=== PATIENT | female | born 1955 | race Caucasian/White ===

== ENCOUNTER 2021-06-20 12:28 | Emergency (ER) | payer OTHER, SELFPAY ==
[2021-06-20 12:28] VITALS: BP 117/100; PULSE 122; RESP 16; TEMP 36.6; O2SAT 100; BMI 36.8
--- NOTE | 2021-06-20 12:32 | EKG12_ITS ---
Test Reason : CHEST PRESSURE Blood Pressure : / mmHG Vent. Rate : 111 BPM Atrial Rate : 111 BPM P-R Int : 142 ms QRS Dur : 076 ms QT Int : 324 ms P-R-T Axes : 030 006 021 degrees QTc Int : 440 ms Sinus tachycardia Nonspecific ST abnormality Abnormal ECG Confirmed by MATT LUCIA, DONNA ([id number]), online editor SERGEY YARBROUGH ([id number]) on 06/21/2021 10:23:30 AM Referred By: ARMANDO Confirmed By:DONNA GUTIERREZ MD
--- NOTE | 2021-06-20 13:15 | RAD_ITS ---
STUDY: X-RAY CHEST REASON FOR EXAM: Female, 66 years old. Chest pain. TECHNIQUE: Single AP portable view of the chest. COMPARISON: Comparison is made with prior study dated 06/11/2012. FINDINGS: The lungs are clear and expanded. There is no demonstrated pleural abnormality. Normal size heart. Normal mediastinum and suraj. Normal visualized pulmonary arteries. Normal visualized aortic arch and descending thoracic aorta. There are diffuse degenerative changes of the visualized thoracic spine. Normal visualized ribs, clavicles, and shoulders. There is no demonstrated abnormality of the visualized soft tissue structures of the upper abdomen. RAD/Chest 1 View IMPRESSION: Normal x-ray examination of the chest. Electronically Signed: Juanito Peres MD at 13:40 EST ,
[2021-06-20 13:56] VITALS: BP 128/111; PULSE 106; RESP 18; O2SAT 95
[2021-06-20 14:07] LABS: Absolute Lymphocyte Count 1.38 X10^3/uL (0.83-4.51); Absolute Neutrophil Count 4.4 X10^3/uL (2.0-7.7); Basophil# 0.04 X10^3/uL; Basophil% 0.6 % (0-1); Eosinophil# 0.07 X10^3/uL; Eosinophils% 1.1 % (0-5); Hematocrit 43.9 % (37-47); Hemoglobin 14.7 g/dL (12.0-15.0); Lymphocyte # 1.38 X10^3/ul (0.83-4.51); Lymphocyte % 21.1 % (19-41); Mean Corp Hgb Conc 33.5 g/dL (32-36); Mean Corpuscular Hgb 29.4 pg (27.0-32.0); Mean Corpuscular Volume 87.8 fL (81-99); Mean Platelet Vol. 9.3 fl (6.2-12.0); Monocyte# 0.69 X10^3/uL; Monocyte% 10.5 % (0-10); NRBC Flagged by Analyzer 0 % (0-5); Neutrophil # 4.35 X10^3/uL (2.7-7.7); Neutrophil % 66.4 % (47-70); Platelet Count 404 K/mm3 (150-450); RBC Distribution Width CV 13.6 % (11.6-14.6); RBC Distribution Width SD 43.7 fl (35.1-43.9); White Blood Count 6.6 K/mm3 (4.4-11.0)
[2021-06-20 14:14] LABS: D-Dimer Quantitative (DVT/PE) 0.33 FEU/ug/m (0.27-0.49)
[2021-06-20 14:51] LABS: Anion Gap 7 (5-15); BUN 17 mg/dL (7-18); Calcium,Total 9.3 mg/dL (8.5-10.1); Chloride 104 mmol/L (98-107); Creatinine, Serum 0.68 mg/dL (0.55-1.02); EST Glomerular Filtration Rate 93 mL/min (>60); Est Glom Filt Rate - Afr Amer 112 mL/min (>60); Estimated Creatinine Clearance 63.07 ml/min; Glucose 100 mg/dL (74-106); Potassium 4.3 mmol/L (3.5-5.1); Sodium Level 136 mmol/L (136-145); Troponin-I HS 5 pg/mL (3.0-54.0)
[2021-06-20 15:00] VITALS: BP 134/85; PULSE 92; RESP 19; O2SAT 95
--- NOTE | 2021-06-20 16:03 | ED.VIS.CHEST ---
HPI History of Present Illness Chief Complaint: Chest Pain Narrative Narrative: 66-year-old female presenting with chest pain. She states it feels achy in the left upper chest has been intermittent since . There is no any shortness of breath. Is not sharp or pleuritic. She does not have nausea or diaphoresis with it. She states she was at work describing that she was having to her coworkers and they told her that she has classic that she needs to come to the ER right away to get a chest pain evaluation. Patient denies any abdominal pain. She denies diarrhea or constipation. She denies fever chills cough. She states she has been eating drinking normally. [facility] Medical History GERD (gastroesophageal reflux disease) Hyperlipidemia Obesity Allergy/AdvReac Type Severity Reaction Status Date / Time dicyclomine [From Bentyl] Allergy Rash Verified 06/20/21 12:32 influenza A (H5N1) virus Allergy Other Verified 06/20/21 12:32 vaccine mo metronidazole [From Flagyl] Allergy Rash Verified 06/20/21 12:32 moxifloxacin [From Avelox] Allergy Rash Verified 06/20/21 12:32 Social History Smoking Status: Never smoker ROS ROS ED Constitutional Constitutional ED: Denies fever(s) Eyes Eyes: Denies blurry vision or change in vision ENT ENT ED: Denies ear pain or sore throat Cardiovascular Cardiovascular: Reports chest pain Respiratory/Chest Respiratory/Chest: Denies cough, dyspnea or sputum Gastrointestinal Gastrointestinal: Denies abdominal pain, constipation, diarrhea, nausea or vomiting Genitourinary Genitourinary ED: Denies dysuria, hematuria or urinary frequency Musculoskeletal Musculoskeletal: Denies arthralgias, myalgias or neck pain Integumentary Denies abscess, Abrasions or rash Neurologic Neurologic: Denies headache(s), paresthesias or weakness Psychiatric Psychiatric: Denies anxiety, depression, suicidal ideation or suicidal thoughts Endocrine Endocrinology: Denies polydipsia or polyuria EXAM Physical Exam Const Vital Signs: 06/20/21 12:28 06/20/21 13:56 06/20/21 15:00 Temperature 98 F Temperature Source Temporal Pulse Rate 122 H 106 H 92 Respiratory Rate 16 18 19 H Blood Pressure 117/100 H 128/111 H 134/85 H Blood Pressure Mean 105 116 101 Pulse Ox 100 95 95 Oxygen Delivery Method Room Air Room Air Room Air Positive well nourished General Appearance ED: NAD HEENT Reports moist mucous membranes normocephalic and atraumatic Eyes PERRL and EOMs intact bilaterally Chest Wall inspection of chest normal and palpation of chest normal Resp normal respiratory effort Effort and Inspection: respiratory distress Cardio regular rate and regular rhythm Extremity normal to inspection Neuro oriented x3 and CN's II-XII intact bilaterally Sensorium / Orientation: awake and alert Motor Exam: strength 5/5 throughout Psych mental status grossly normal Skin General Skin Exam: Negative for jaundice Heart Score History: Slightly/Non-Suspicious ECG: Normal Age: >45 - <65 years Risk Factors: 1 or 2 Risk Factors Troponin: </= Normal Limit Score: 2 MDM MDM MDM Narrative Medical decision making narrative: 66-year-old female presenting with chest pain. It has been admitted since . There really is no associated symptoms. I obtained an EKG which on my interpretation shows a sinus rhythm with a ventricular rate of 111 bpm without sign ischemic changes. Chest x-ray my interpretation is no acute cardiopulmonary process the radiologist does agree. CBC and BMP are unremarkable. D-dimer is negative at 0.33 high-sensitivity troponin is 5 initially and the repeat at 2 hours is 6. There are no significant interval changes. Heart score is 2. I feel the patient is stable for outpatient follow-up. She is amenable to this. She will be discharged home in stable condition. Impression: 1. Chest pain Lab Data Attestation: I reviewed the patient's lab results. Labs: Laboratory Results - last 24 hr 06/20/21 06/20/21 06/20/21 13:50 13:50 13:50 WBC 6.6 RBC 5.00 Hgb 14.7 Hct 43.9 MCV 87.8 MCH 29.4 MCHC 33.5 RDW Std Deviation 43.7 RDW Coeff of Skye 13.6 Plt Count 404 MPV 9.3 Immature Gran % (Auto) 0.300 Neut % (Auto) 66.4 Lymph % (Auto) 21.1 Esmeralda % (Auto) 10.5 H Eos % (Auto) 1.1 Baso % (Auto) 0.6 Absolute Neuts (auto) 4.4 Absolute Lymphs (auto) 1.38 Nucleated RBC % 0 D-Dimer Quant (PE/DVT) 0.33 Sodium 136 Potassium 4.3 Chloride 104 Carbon Dioxide 25.0 Anion Gap 7 BUN 17 Creatinine 0.68 Estim Creat Clear Calc 63.07 Est GFR (MDRD) Af Amer 112 Est GFR (MDRD) Non-Af 93 BUN/Creatinine Ratio 25.0 H Glucose 100 Calcium 9.3 Troponin I High Sens 5 06/20/21 15:40 WBC RBC Hgb Hct MCV MCH MCHC RDW Std Deviation RDW Coeff of Skye Plt Count MPV Immature Gran % (Auto) Neut % (Auto) Lymph % (Auto) Esmeralda % (Auto) Eos % (Auto) Baso % (Auto) Absolute Neuts (auto) Absolute Lymphs (auto) Nucleated RBC % D-Dimer Quant (PE/DVT) Sodium Potassium Chloride Carbon Dioxide Anion Gap BUN Creatinine Estim Creat Clear Calc Est GFR (MDRD) Af Amer Est GFR (MDRD) Non-Af BUN/Creatinine Ratio Glucose Calcium Troponin I High Sens 6 Radiography Diagnostic Testing: Clinical Impression(s) from Imaging Studies Chest X-Ray 06/20/21 13:15 IMPRESSION: Normal x-ray examination of the chest. Electronically Signed: Juanito Peres MD at 13:40 EST , Discharge Plan Triage Chief Complaint: Chest Pain ED Provider: Reyes Gaspar Dx/Rx/DC Orders Instructions: ED Chest Pain, Noncardiac Primary Care Provider: Teresita Ruiz Referrals: Teresita Ruiz MD [Primary Care Provider] - Disposition Disposition: Home, Self Care
[2021-06-20 16:09] LABS: Troponin-I HS 6 pg/mL (3.0-54.0)
== END 2021-06-20 17:00 | disposition home or self-care (01) ==
PROVIDERS: Emergency Provider Student in an Organized Health Care Education/Training Program; PCP Family Medicine; Visit Provider Student in an Organized Health Care Education/Training Program
DX: R07.9 Chest pain, unspecified (principal)
CPT/HCPCS: 71045; 80048; 84484; 85025; 85379; 93005; 99284

== ENCOUNTER 2021-07-11 15:52 | Outpatient (CLI) | payer OTHER, SELFPAY ==
--- NOTE | 2021-07-11 15:58 | CT_ITS ---
STUDY: CT CHEST WITH CONTRAST REASON FOR EXAM: Female, 66 years old. ATYPICAL CP RADIATION DOSAGE (If Supplied By Facility): CTDIvol = ( 11.65 ) mGy, DLP = ( 428.13 ) mGycm TECHNIQUE: Transaxial imaging was performed following intravenous administration of IV 100mL Isovue-300. Multiplanar coronal and sagittal images were reformatted. Individualized dose optimization techniques were used for this CT. COMPARISON: Previous plain films FINDINGS: Lung windows show diffuse interstitial edema in both lung hodgson. No organized infiltrate or effusions. Pattern of opacification suggests pulmonary vascular congestion/early CHF. Soft tissue windows show a normal-appearing thyroid gland. No suspicious adenopathy. No pleural or pericardial effusions. Normal heart and pericardium. No coronary artery calcifications. Normal mediastinum. Normal hilar regions. Normal enhanced pulmonary arteries. Normal aorta arch and descending thoracic aorta. There are multi-level degenerative changes of the thoracic spine. Limited cuts through the upper abdomen show a small retrocardiac hiatal hernia. CT/Chest WITH Contrast IMPRESSION: Diffuse interstitial edema in both lung hodgson without organized infiltrate or effusion. Follow-up recommended to ensure resolution. No suspicious adenopathy or noncalcified mass or nodule in either lung field. No pleural or pericardial effusions Degenerative bony changes Electronically Signed: Palomo Payne MD at 10:30 EDT ,
== END 2021-07-11 23:59 | disposition home or self-care (01) ==
LOC: CT 15:56
PROVIDERS: PCP Family Medicine; Referring Provider Family Medicine; Visit Provider Family Medicine
DX: R07.89 Other chest pain (principal)
CPT/HCPCS: 71260; Q9967; A4216

== ENCOUNTER → 2021-09-20 | Outpatient (CLI) | payer OTHER, SELFPAY ==
--- NOTE | 2021-09-20 08:21 | RAD_ITS ---
INDICATION: GERD EXAMINATION/TECHNIQUE: Barium oral contrast , barium pill, and gas bubbles were administered to the patient. Total Fluoroscopic Time: 0.41 minutes/sec AND number of Fluoroscopic Images: 12 OR Radiation dosage index: COMPARISON: None. FINDINGS: There is a moderate hiatal hernia. There is a nonpersistent ring at the apex of the hernia. There is delayed emptying into the hiatal hernia sac and then delayed emptying from the hernia sac into the stomach. Thick, thin, and barium solid pill do eventually passed the stomach after some delay. The mucosal pattern is unremarkable. No significant reflux was elicited. RAD/Esophagus Single Contrast IMPRESSION: As above. Electronically Signed: Anthony Hall, at 9:18 EDT ,
== END | disposition home or self-care (01) ==
LOC: RAD 08:16
PROVIDERS: PCP Family Medicine; Referring Provider Internal Medicine Gastroenterology; Visit Provider Internal Medicine Gastroenterology
DX: K21.9 Gastro-esophageal reflux disease without esophagitis (principal)
CPT/HCPCS: 74220

== ENCOUNTER → 2023-03-06 | Outpatient (CLI) | payer MEDICARE, OTHER, SELFPAY ==
--- NOTE | 2023-03-06 07:51 | CT_ITS ---
CT LEFT LOWER EXTREMITY WITH 3-D IMAGING CLINICAL INDICATION: VARUS DEFORMITY LEFT KNEE *CHIP PROTOCOL* TECHNIQUE: Axial CT images of the left lower extremity (including left hip, left knee, and left ankle) was performed without IV contrast material. Coronal and sagittal reformats were provided. RADIATION DOSAGE (If Supplied By Facility): CTDIvol = ( 18.81 ) mGy, DLP = ( 1404.88 ) mGycm COMPARISON: No relevant prior comparison study available FINDINGS: Bones: Unremarkable left hip joint. There is mild to moderate tricompartment degenerative arthrosis with marginal osteophyte formation of the left knee joint. There is mild degenerative changes at the navicular-cuneiform as well as second through fourth tarsometatarsal joints. Osseous structures are intact without evidence of fracture or dislocation. No lytic or blastic osseous masses. Soft Tissues: There is a small to moderate left knee joint effusion. The deep soft tissue structures are unremarkable. The superficial soft tissues are unremarkable without evidence of edema, hematoma, or foreign body. There is chronic sigmoid diverticulosis without acute diverticulitis. CT/Extremity Lower without Contra IMPRESSION: Mild to moderate tricompartment degenerative arthrosis of the left knee joint. Small to moderate left knee joint effusion. Electronically Signed: Ernie Solis MD at 9:03 EST Reading Location ID and State: [address] [place] [address] , Service support ,
== END | disposition home or self-care (01) ==
LOC: CT 07:50
PROVIDERS: PCP Family Medicine; Referring Provider Student in an Organized Health Care Education/Training Program; Visit Provider Student in an Organized Health Care Education/Training Program
DX: M17.12 Unilateral primary osteoarthritis, left knee (principal)
CPT/HCPCS: 73700

== ENCOUNTER 2023-03-29 15:39 | Observation (INO) | payer MEDICARE, OTHER, SELFPAY ==
--- NOTE | 2023-03-07 09:22 | EKG12_ITS ---
Test Reason : PRE-OP Blood Pressure : / mmHG Vent. Rate : 090 BPM Atrial Rate : 090 BPM P-R Int : 140 ms QRS Dur : 080 ms QT Int : 344 ms P-R-T Axes : 032 -11 -01 degrees QTc Int : 420 ms Normal sinus rhythm Normal ECG Confirmed by EARLE LUCIA, MAKAYLA ([id number]), story editor JENNIFER MOREIRA ([id number]) on 03/12/2023 8:36:59 AM Referred By: SRIRAM Confirmed By:AGUSTÍN OG MD
[2023-03-07 09:51] LABS: Absolute Lymphocyte Count 1.88 X10^3/uL (0.83-4.51); Absolute Neutrophil Count 2.6 X10^3/uL (2.0-7.7); Basophil# 0.04 X10^3/uL; Basophil% 0.8 % (0-1); Eosinophil# 0.28 X10^3/uL; Eosinophils% 5.3 % (0-5); Hematocrit 43.7 % (37-47); Hemoglobin 13.6 g/dL (12.0-15.0); Lymphocyte # 1.88 X10^3/ul (0.83-4.51); Lymphocyte % 35.6 % (19-41); Mean Corp Hgb Conc 31.1 g/dL (32-36); Mean Corpuscular Hgb 28.7 pg (27.0-32.0); Mean Corpuscular Volume 92.2 fL (81-99); Mean Platelet Vol. 9.2 fl (6.2-12.0); Monocyte# 0.46 X10^3/uL; Monocyte% 8.7 % (0-10); NRBC Flagged by Analyzer 0 % (0-5); Neutrophil # 2.61 X10^3/uL (2.7-7.7); Neutrophil % 49.4 % (47-70); Platelet Count 365 K/mm3 (150-450); RBC Distribution Width CV 13.8 % (11.6-14.6); RBC Distribution Width SD 47.1 fl (35.1-43.9); Red Blood Count 4.74 M/mm3 (4.2-5.4); White Blood Count 5.3 K/mm3 (4.4-11.0)
[2023-03-07 10:15] LABS: Albumin, Serum 3.7 g/dL (3.2-5.0); Anion Gap 5 (5-15); BUN 17 mg/dL (7-18); BUN/Creat Ratio 21.6 RATIO (10-20); Calcium,Total 9.3 mg/dL (8.5-10.1); Chloride 103 mmol/L (98-107); Creatinine, Serum 0.79 mg/dL (0.55-1.02); EST Glomerular Filtration Rate 78 mL/min (>60); Est Glom Filt Rate - Afr Amer 94 mL/min (>60); Glucose 83 mg/dL (74-106); Potassium 4.3 mmol/L (3.5-5.1); Sodium Level 136 mmol/L (136-145)
[2023-03-07 10:22] LABS: Magnesium 1.8 mg/dL (1.6-2.6)
[2023-03-29] VITALS (11 sets, daily range): BP systolic 99–125; BP diastolic 47–82; PULSE 87–98; RESP 16–18; TEMP 36.1–36.8; O2SAT 93–99; BMI 34.9
[2023-03-29] MEDS: Celecoxib 200 MG Capsule 400 MG PO (09:43)
[2023-03-29] MEDS: Acetaminophen 500 MG Tablet 1000 MG PO ×2 (09:43→20:59)
[2023-03-29] MEDS: Gabapentin 600 MG Tablet PO (09:43)
[2023-03-29] MEDS: Lactated Ringers 1,000 ML 999 ML IV (09:49)
[2023-03-29] MEDS: Magnesium 2 GM for ERAS IV (09:50)
[2023-03-29] MEDS: Lactated Ringers 1,000 ML 15 ML IV (09:53)
[2023-03-29 10:24] LABS: Bedside Glucose 74 mg/dL (74-106)
--- NOTE | 2023-03-29 11:30 | KNEE_PTH ---
PATIENT: MORENO WOLFF LOC: MS3 U#:[id number] AGE/SX: 68/F ROOM: MT313 RE03/29/[address]: Dr. Geovanny Ng DO : 1955 BED: 1 DIS: 03/30/2023 SPEC #: [id number] RECD: 03/30/23 08:19 STATUS: FLORY TAMICA #: [id number] JOHN: 03/29/23 11:[address]: Geovanny Ng DEPT: SURGICAL PATHOLOGY RECD BY: Geovanna Morales ENTERED: 03/30/23 09:38 SP TYPE: TOTAL KNEE OTHR DR: Dr. Teresita Ruiz MD Tissues: Knee, NOS Procedures: Decalcification bone/plaque Surgery Specimen Level IV HEADER OPERATION: ERAS, total knee replacement robotic arm assist PRE-OP DIAGNOSIS: Osteoarthritis left knee TISSUE SUBMITTED: Left total knee resection MICROSCOPIC DIAGNOSIS Left knee, total knee replacement/resection: Pieces of bone with degenerative osteoarthritic changes. Fibroadipose tissue, fibroconnective tissue and reactive synovial tissue with moderate chronic inflammation. SJ:nela 04/04/2023 MICROSCOPIC DESCRIPTION Slides are reviewed. GROSS DESCRIPTION Received is one container designated left total knee. The specimen consists of multiple fragments of jackson-yellow bone measuring in aggregate 13.0 x 12.0 x 2.0 cm. Also in the specimen container are multiple fragments of yellow-white soft tissue measuring in aggregate 7.0 x 6.0 x 2.0 cm. A number of bony fragments contain articular surfaces consistent with tibial plateau and femoral condyle and displaying prominent osteophyte formation, eburnation and bone erosion. Bench Mechanic sections are submitted in two cassettes as follows: 1 - soft tissue, 2 - bone after decalcification. / AM:nela 03/30/2023 TC:5 CPT: 42630, 47203
[2023-03-29] MEDS: TXA 1000mg in NS100 100ml (IVPB at Closure) 660 MG IV (13:11)
[2023-03-29] MEDS: Cefazolin 2 GM in 0.9% Normal Saline (100mL Bag) 100 ML IV ×2 (13:21→21:19)
[2023-03-29] MEDS: TXA 1000mg in NS100 100ml (IVPB at Incision) 660 MG IV (13:40)
[2023-03-29] MEDS: dexAMETHasone 10 MG/ML Vial IV (13:48)
[2023-03-29] MEDS: JPS (Morphine 10mg/ml) OPERA.SITE (15:30)
--- NOTE | 2023-03-29 15:55 | PCM.OPRPT ---
Report of Operation Date of Procedure: 03/29/23 Description of Surgical Findings:: Preoperative diagnosis: Left knee primary osteoarthritis Postoperative diagnosis: Left knee primary osteoarthritis Procedure: Cemented left total knee arthroplasty Surgeon: Geovanny Ng DO Director Of Training: Diana Martinez PA-C Anesthesia: Spinal with sedation, adductor canal block Anesthesiologist: Dr. Husain Complications: None apparent Drains: None Estimated blood loss: 50 cc Urinary output: None recorded IV fluids: 1800 cc crystalloid Specimens: Total knee resections Surgical implants: Venita triathlon X3 asymmetric patella size A29mm, triathlon cruciate retaining femoral #1, primary tibial baseplate #2, triathlon X3 tibial bearing insert CS 10 mm Indications: This is a 68-year-old female seen in the outpatient setting diagnosed with left knee osteoarthritis with significant varus deformity she he failed nonoperative management with intra-articular corticosteroid injections, activity modification, bracing, zalb-kie-hdfagny analgesics. X-rays revealed grade 4 medial compartment changes. She also had significant patellofemoral arthritis. I recommended a left total knee arthroplasty. The risk, benefits, alternatives to procedure reviewed with patient at length and he agreed to proceed. Risks included but were not limited to bleeding, infection, loss of life or limb, need for additional surgery, persistent pain, intraoperative or postoperative fracture, instability, loosening of components, wound complications, stiffness, neurovascular injury, DVT or PE. Patient expressed understanding these risks and wished to proceed with surgery. Informed consent was obtained in the outpatient setting. Description of procedure: Patient was identified in the preoperative holding area by name, medical record number, and date of . Informed consent was confirmed with the patient. The operative knee was marked with a surgical marker. At time of her procedure, patient brought to the operative suite and positioned supine a standard operating table. Anesthesia then administered a spinal anesthetic. She was then repositioned in the supine position with all bony prominences well-padded. We then placed a well-padded pneumatic tourniquet on the left upper thigh. The left upper extremity was brought across patient's chest throughout the procedure. We then prepped and draped the left lower extremity in a normal, sterile orthopedic fashion. We performed a timeout with all parties in attendance in agreement with the side, site, operation be performed. No concerns were voiced and would like to proceed with surgery. 2 g Ancef was administered prior to the incision by anesthesia staff as well as 1 g IV TXA. First I exsanguinated the left lower extremity with a Esmarch bandage. Tourniquet was inflated to 280 mmHg which remained up for approximately 70 minutes. Esmarch was removed. I planned a standard midline approach to the left knee approximately 15 cm in length. Skin was sharply incised with a 10 blade scalpel developing full-thickness layers down to the retinaculum. Layers were developed identifying the VMO. I then planned a standard medial parapatellar arthrotomy performed in flexion. The anterior horn of the medial meniscus was released. Hoffa's fat pad was then released. I then everted the patella in extension and brought the knee into 90 degrees of flexion. The anterior horn of the lateral meniscus was then released. The ACL was split in its mid substance with a 10 blade. We then brought the knee back into extension. I measured the outer diameter of the patella to be approximately 46 mm, a patellar reamer was then selected. I measured the thickness of the patella to be 24 mm. I then reamed the patella to a depth of approximately 15 mm. A protective baseplate was then placed on the patella. I then placed pins in the metaphyseal distal femur medial to lateral for the Gene arrays. In similar fashion, I made a 2 cm incision approximately a handsbreadth distal to the tibial tubercle along the medial aspect of the tibia, drilling 2 bicortical pins for the tibial array. The knee was brought into flexion. The patella was subluxed laterally but not everted. Medial lateral retractors were placed. We then utilized the [employer] software to confirm our planned surgical procedure and oriented with the patient's osseous anatomy. All checks with the [employer] system were confirmed. Patient had a significant fixed varus deformity after performing stress examination utilizing the [employer] software. We elected to place the tibial baseplate in approximately 3 degrees of varus to allow for appropriate balancing. Sawblade was then brought in. I first started with the tibial cut, ensuring protection of the MCL and patellar tendon. A tibial wafer was then excised. I then proceeded to make the posterior femoral, anterior, anterior chamfer cuts with the same blade. Ligaments were protected with [employer] retractors. Sawblade was then exchanged to perform the distal femoral and posterior chamfer cuts. The robot was then removed from the surgical field. Remaining loose bone and meniscus was excised carefully. Posterior osteophytes were removed from the distal femur with a curved osteotome and rongeur. Trial components were then placed. Balance was excellent in both extension and 90 degrees flexion. No mid flexion instability was apparent. I then drilled for a size 40 patella. Patella was trialed. Tracking was excellent. We then marked for tibial baseplate. Distal femoral pegs were drilled. Tibial keel was punched. Trials were removed. Periarticular block was administered. The wound was copiously irrigated with normal saline solution. Simplex cement was then mixed on the back table. Components were then cemented in place with excess cement being removed. Cement was allowed to cure with the components in full extension utilizing a 9 mm trial polyethylene component. While the cement was curing, Betadine solution was irrigated into the wound and the wound edges for 3 minutes. After cement had cured fully, trial polyethylene was removed. Tourniquet was deflated. Hemostasis was excellent. An additional 1 g TXA was administered IV. I selected a size 10 mm polyethylene which was placed and impacted per process treater recommendations. Final components appeared very well balanced with excellent range of motion. There is no significant remaining flexion contracture. The wound was copiously irrigated with normal saline solution. Capsule was closed watertight with #1 strata fix barbed suture. Deeper report muscle layer was reapproximated with 0 Vicryl suture. Dermis was reapproximated buried interrupted 2-0 Vicryl suture. Skin was finally reapproximated keri. Patient tolerated the procedure well without apparent complication. She was safely awakened in the operative suite, transferred to his hospital bed and subsequently to PACU in stable condition. Need for skilled assistant grocery store manager: Diana Martinez PA-C was critical to the outcome of the case. During the course of the procedure the physician assistant grocery store manager played a vital role. Her intimate knowledge of my steps in the procedure aided in safe and expedient completion of the procedure. The PA played a vital role in positioning particularly in obtaining the appropriate positioning. The PA was also vital in the retraction of soft tissues during the exposure and protecting vital structures. The PA was also vital and protecting soft tissues during times of bony cuts. She also played a vital role in closure with my direct supervision. The PA was also important during reduction and dislocation of the joint and trials intraoperatively. Post Operative Plan: Patient will be placed in observation overnight. Plan for discharge home tomorrow. Weightbearing: Range of motion and weightbearing as tolerated left lower extremity. Antibiotics: Ancef 2 g every 8 hours x 3 doses. Plan for 7 days postoperative doxycycline upon discharge. DVT Prophylaxis: Aspirin 81 mg twice daily for DVT prophylaxis. Gamino: None Dressing: Maintain silver dressing x7 days X-Rays: 2-week x-rays in the office. Follow-up: 2 weeks in my office for staple removal
[2023-03-29] MEDS: Lactated Ringers 1,000 ML 125 ML IV (16:54)
[2023-03-29] MEDS: Rizatriptan Benzoate 10 MG Tablet PO (17:20)
[2023-03-29] MEDS: Senna/Docusate Sodium 1 Tablet 2 TABLET PO (21:31)
[2023-03-29] MEDS: Famotidine 20 MG Tablet PO (21:31)
[2023-03-30 01:16] VITALS: BP 124/57; PULSE 92; RESP 18; TEMP 36.8; O2SAT 93
[2023-03-30] MEDS: Levothyroxine 88 MCG Tablet PO (05:42)
[2023-03-30] MEDS: Acetaminophen 500 MG Tablet 1000 MG PO (05:42)
[2023-03-30] MEDS: Cefazolin 2 GM in 0.9% Normal Saline (100mL Bag) 100 ML IV (05:42)
[2023-03-30 05:45] VITALS: BP 117/73; PULSE 85; RESP 16; TEMP 36.9; O2SAT 97
[2023-03-30] MEDS: oxyCODONE 5 MG Tablet PO (05:59)
[2023-03-30 06:20] LABS: Hematocrit 38.5 % (37-47); Mean Corp Hgb Conc 31.2 g/dL (32-36); Mean Corpuscular Hgb 28.4 pg (27.0-32.0); Mean Platelet Vol. 9.3 fl (6.2-12.0); Platelet Count 387 K/mm3 (150-450); RBC Distribution Width CV 13.8 % (11.6-14.6); RBC Distribution Width SD 46.4 fl (35.1-43.9); Red Blood Count 4.23 M/mm3 (4.2-5.4); White Blood Count 15.3 K/mm3 (4.4-11.0)
[2023-03-30 07:26] LABS: Anion Gap 5 (5-15); BUN 14 mg/dL (7-18); BUN/Creat Ratio 17.5 RATIO (10-20); Calcium,Total 8.2 mg/dL (8.5-10.1); Chloride 107 mmol/L (98-107); EST Glomerular Filtration Rate 76 mL/min (>60); Est Glom Filt Rate - Afr Amer 92 mL/min (>60); Glucose 108 mg/dL (74-106); Potassium 4.5 mmol/L (3.5-5.1); Sodium Level 137 mmol/L (136-145)
[2023-03-30] MEDS: Aspirin 81 MG TAB.CHEW PO (10:10)
[2023-03-30] MEDS: Famotidine 20 MG Tablet PO (10:10)
[2023-03-30] MEDS: Celecoxib 200 MG Capsule PO (10:11)
[2023-03-30 11:34] VITALS: BP 110/60; PULSE 82; RESP 16; TEMP 36.7; O2SAT 100
--- NOTE | 2023-03-30 11:38 | PCM.PN.ORT ---
Subjective Subjective Patient is s/p left total knee arthroplasty with Dr. Ng 03/29/2023. Patient resting comfortably in bed. Rates pain 3/ 10 at rest. With movement 6/10. States taking oxycodone and Tylenol as needed and ice help to relieve pain. Patient has been up with therapy. Walking with the assit of a walker. Afebrile, no chest pain, shortness of breath, negative calf pain/ erythema, and no other signs of DVT. Objective Data Objective Data Vital Signs: Vital Signs Temp Pulse Resp BP Pulse Ox O2 Del Method 98.0 F 82 16 110/60 100 Room Air 03/30/23 11:34 03/30/23 11:34 03/30/23 11:34 03/30/23 11:34 03/30/23 11:34 03/30/23 11:34 Oxygen Delivery Method Room Air Weight: 83.8 kg Body Mass Index (BMI) 34.9 Intake & Output: Intake and Output for Last 24 Hours 03/28/23 03/29/23 03/30/23 23:59 23:59 23:59 Intake Total 4113.17 / 4488.17 625 / 625 Balance 4113.17 / 4488.17 625 / 625 Lab / Micro Data 03/30/23 05:46 03/30/23 05:46 Labs: Laboratory Results - last 24 hr 03/30/23 05:46: WBC 15.3 H, RBC 4.23, Hgb 12.0, Hct 38.5, MCV 91.0, MCH 28.4, MCHC 31.2 L, RDW Std Deviation 46.4 H, RDW Coeff of Skye 13.8, Plt Count 387, MPV 9.3, Sodium 137, Potassium 4.5, Chloride 107, Carbon Dioxide 25.0, Anion Gap 5, BUN 14, Creatinine 0.80, Estim Creat Clear Calc 52.20, Est GFR (MDRD) Af Amer 92, Est GFR (MDRD) Non-Af 76, BUN/Creatinine Ratio 17.5, Glucose 108 H, Calcium 8.2 L Micro: Microbiology 03/07/23 09:34 Swab (Method) Nasal Screen MRSA/MSSA - Final Physical Exam Narrative Patient resting comfortably in bed No signs of acute distress Satting well on room air Limb is warm to touch, Sensation intact throughout entire lower extremity, including saphenous, sural, superficial and deep peroneal, and tibial distribution. DP/PT pulses bounding. Dorsiflexion plantarflexion strength 5/5 Dressing small siletz tribe area of drainage which is sanguinous in the mid inferior portion of the dressing. 0.5 cm in diameter. Distal tibial pin site dressing is saturated with dried sero-sanguinous drainage. They have not changed dressing. Drainage is stable since yesterday. No active drainage. Calf nontender to palpation, no erythema, no edema. Negative Homans Assessment & Plan Assessment/Plan (1) S/P total knee arthroplasty: (2) Osteoarthritis of left knee: PLAN: Plan Postop day 1 status post left total knee arthroplasty 1. Will continue PT today. Weightbearing as tolerated 2. plan for discharge this afternoon following PT 3. Patient will follow up for post op appointment as previously scheduled in 2 weeks with our office 4. Patient has outpatient PT appointment as previously scheduled 5. WBC 15.3 acute reactive leukocytosis: secondary to pre operative decadron. no acute systemic signs of infection. will monitor, and likely self resolve. 6. No post operavtive anemia 7. DVT prophylaxis : Aspirin 81 mg twice daily x4 weeks 8. Pain control: patient instructed to take tylenol 500mg 2 tablets TID. and oxycodone 1-2 tablets every 4-6 hours only as needed for pain control. 9. Patient also given a prescription of Celebrex for pain control and inflammation. resume home omeprazole for ulcer prophylaxis. Patient received 7 days of extended doxycycline twice daily due to BMI. 10. ok to remove post op dressing. post op day 7
--- NOTE | 2023-03-30 11:41 | DCINST_ITS ---
Discharge Instructions Diet Discharge Diet: No restrictions Activity Discharge Activity: Return to Normal Activity Weight Bearing Status: Weight bearing as tolerated Keep extremity elevated above heart level: Left Leg Dressing / Incision Call your doctor if your incision/area has: Continuous Slow Oozing, Sudden Increased Bleeding, Increased Pain/ Swelling, Increased Redness, Foul Smelling Discharge and Swelling at the incision site Call your doctor if you observe: Fever of 101 or Higher, Inability to have a bowel movement, Dizziness, Chest pain and Calf discomfort Remove Dressing in: 1 week Cleanse incision/area with: Soap & Water and Keep Dressing Clean & Dry Follow Up Care When: With most orthopedics in our office as previously scheduled in 2 weeks postop. Test Results: Test results from this visit will be discussed in further detail at your follow- up appointment, if applicable. Discharge Plan Admission Admit Date/Time: 03/29/23 15:39 Attending Provider: Geovanny Ng Primary Care Provider: Teresita Ruiz Discharge Orders/Prescriptions Prescriptions: No Action levothyroxine 88 mcg tablet 88 mcg PO DAILY Patient Comments: take 1 tablet by mouth once daily multivitamin Tablet 1 tab PO DAILY omeprazole 20 mg capsule,delayed release(DR/EC) 20 mg PO DAILY rizatriptan 10 mg tablet,disintegrating 10 mg PO Q2H PRN (Reason: migraine headache) Patient Comments: dissolve 1 tablet ON TONGUE AT ONSET OF HEADACHE once daily if needed Other Ambulatory Orders: 12 Lead EKG (Routine) Timeframe: [id number] Location: None Selected Ordered By: Dr. Geovanny Ng Referrals / Follow Up: Treesita Ruiz MD [Primary Care Provider] -
--- NOTE | 2023-03-30 12:52 | CASEMGMT ---
ANETA JONES Assessment: Face to Face with pt for initial transition planning/care coordination assessment. ANETA JONES introduced self and role at [facility], pt voices understanding and consents to assessment. Pt is A&O x4 and answers all questions appropriately at this time. Pt sitting up in chair in no distress with at bedside. Care providers, pharmacy, and demographics verified/updated. Admitting Dx:total knee replacement PCP:Sara Specialists:kitty Ng Preferred Pharmacy:[facility] Retail Insurance:[facility], MMO Prescription Benefit: yes LNOK:Alejandro Broussard, Living Arrangements: Pt lives with in a two story home with FFSU and two steps to enter with a rail. Pt reports she is I in ADL's and denies concerns at home. is able to assist pt post op. Transportation: Pt drives self and denies concerns with transportation. Pt will transport pt until she is able to drive again. DME:toilet riser, toilet rails, cane, FWW HHC/SNF:Pt denies hx of Pt states no concerns with going home at time of dc. She has outpt therapy set up at [facility] on Sunday. Pt states no further concerns/needs. CM to follow. Advised pt to ask CM if any further question/concerns/needs arise, voices understanding. Pt Goal:Home with outpt therapy already set up Plan:Home with outpt therapy already set up
--- NOTE | 2023-03-30 13:09 | PHA.DC.MC.R ---
Pharmacy [facility] Service has performed discharge medication reconciliation and counseling for this patient. The patient's discharge medication list was reviewed for discrepancies and discrepancies were resolved. The patient was counseled on the following discharge medications and changes in medications for homegoing were reviewed. The Reason for Use, instructions for use, and potential side effects were reviewed for all new medications. The patient's questions regarding all of their medications were answered. 1. Acetaminophen 1000 mg PO Q8H 2. aspirin 81 mg PO BID x 28 days 3. Celecoxib 200 mg Po BID 4. Doxycycline 100 mg PO BID x 7 days 5. Oxycodone 5-10 mg PO Q4-6H PRN pain (4-10) 6. Senna/docusate 2 tabs PO BID The patient was able to verbally demonstrate an understanding of their discharge medications. Medications at Discharge Home Medications levothyroxine 88 mcg tablet 88 mcg PO DAILY HYPOTHYROID 02/28/23 multivitamin 1 tab PO DAILY SUPPLEMENT 02/28/23 omeprazole 20 mg capsule,delayed release 20 mg PO DAILY GERD 02/28/23 rizatriptan 10 mg disintegrating tablet 10 mg PO Q2H PRN migraine headache 02/28/23 acetaminophen 500 mg tablet 1,000 mg (2 x 500 mg) PO Q8 #180 tabs 03/30/23 aspirin 81 mg chewable tablet 81 mg PO BID 4 weeks #56 tabs 03/30/23 celecoxib 200 mg capsule 200 mg PO BID #60 caps 03/30/23 doxycycline monohydrate 100 mg tablet 100 mg PO BID 7 days #14 tabs 03/30/23 oxycodone 5 mg tablet 5 - 10 mg (1 - 2 x 5 mg) PO .q4-6hrs prn PRN Pain Score 4-10 7 days #60 tabs 03/30/23 sennosides 8.6 mg-docusate sodium 50 mg tablet (Stool Softener-Stimulant Laxative) 2 tab PO BID #10 tabs 03/30/23
== END 2023-03-30 13:29 | disposition home or self-care (01) ==
LOC: MS3 03-30 07:11 → SDC 03-30 11:25
PROVIDERS: Anesthesiology; Admitting Provider Student in an Organized Health Care Education/Training Program; PCP Family Medicine; Referring Provider Student in an Organized Health Care Education/Training Program; Visit Provider Student in an Organized Health Care Education/Training Program
PROC: 0SRD0JZ Replacement of Left Knee Joint with Synthetic Substitute, Open Approach (ICD-10-PCS; CPT 27447; principal; 2023-03-29 11:00)
DX: M17.12 Unilateral primary osteoarthritis, left knee (principal); G47.30 Sleep apnea, unspecified; E78.00 Pure hypercholesterolemia, unspecified; E07.9 Disorder of thyroid, unspecified; Z79.899 Other long term (current) drug therapy; Z79.890 Hormone replacement therapy; K21.9 Gastro-esophageal reflux disease without esophagitis
CPT/HCPCS: 27447; 01402; 64447; S2900; 36415; 80048; 82040; 82962; 83735; 84443; 85025; 85027; 87081; 88305; 88311; 93005; 94668; 96361; 96365; 96366; 97162; 97166; 99221; C1776; J7120; G0378; J2405

== ENCOUNTER 2024-04-09 12:44 | Day surgery (SDC) | payer MEDICARE, OTHER, SELFPAY ==
--- NOTE | 2024-04-09 13:08 | PRE.ANES_ITS ---
ASA Classification* ASA Classification ASA Classification: 2 Assessment & Plan Anesthesia* Anesthesia Assessment Anesthesia Assessment: Discussed sedation and/or anesthesia options, risks, benefits, and alternatives with patient/parents/legal guardian/POA. Questions invited. The patient/parents/legal guardian/POA seems to understand and agrees to proceed with anesthesia plan. Reviewed the physical assessment, medical history, allergy history and patient home medications list prior to surgery/procedure/anesthetic and documented any changes. Performed airway and anesthesia risk assessments. Anesthesia Type Anesthesia Type: MAC Anesthesia Focused Assessment* Airway Assessment Mouth opens: >3 cm Mallampati Score: II Focused Labs Anesthesia Preop lab: CBC WBC 15.3 K/mm3 (4.4-11.0) H 03/30/23 05:46 RBC 4.23 M/mm3 (4.2-5.4) 03/30/23 05:46 Hgb 12.0 g/dL (12.0-15.0) 03/30/23 05:46 Hct 38.5 % (37-47) 03/30/23 05:46 Plt Count 387 K/mm3 (150-450) 03/30/23 05:46 CHEMISTRY Potassium 4.5 mmol/L (3.5-5.1) 03/30/23 05:46 Sodium 137 mmol/L (136-145) 03/30/23 05:46 Magnesium 1.8 mg/dL (1.6-2.6) 03/07/23 09:34 BUN 14 mg/dL (7-18) 03/30/23 05:46 Creatinine 0.80 mg/dL (0.55-1.02) 03/30/23 05:46 Glucose 108 mg/dL (74-106) H 03/30/23 05:46 POC Glucose 74 mg/dL (74-106) 03/29/23 09:42 TSH 1.70 uIU/mL (0.358-3.74) 03/07/23 09:34 COAG Pre-Assessment Diagnosis/Proposed Procedure Planned Operative Procedure(s): EGD Anesthesia History Anesthesia History - liquid floor and wall applier: Anesthesia History - liquid floor and wall applier Hx Hospitalization Yes: TOTAL KNEE 1 YEAR - 04/03/24 15:18 OVERNIGHT Any Problems With Anesthesia Yes: PONV 04/03/24 15:18 Cholinesterase deficiency No 04/03/24 15:18 You/Your Family Experience No 04/03/24 15:18 fever (hyperthermia) with Relationship Recent Exposure to Contagious No 03/29/23 09:54 Disease Does patient have nerve No 04/03/24 15:18 stimulator Patient instructed to have device shut off --Does patient have Pacemaker or ICD? When Was Last Pacemaker Check QUESTION #4 FULL TEXT: You/Your Family Experience fever (hyperthermia) with Anesthesia Last Oral Intake Last Oral intake: Last Oral Intake NPO since Meds taken in AM with sips of water? Meds patient instructed to take am of surgery PONV PONV - liquid floor and wall applier: PONV - liquid floor and wall applier Female Yes 04/03/24 15:18 HX of Motion Sickness No 04/03/24 15:18 HX of N/V After Surgery Yes 04/03/24 15:18 Non-Smoker Yes 04/03/24 15:18 Duration of Surgery greater No 04/03/24 15:18 than 60 minutes Number of Risk Factors 3 04/03/24 15:18 PONV Score Moderate Risk 04/03/24 15:18 Height & Weight Height & Weight: Anesthesia: Height & Weight Height 5 ft 1 in 03/29/23 21:06 Respiratory Assessment Respiratory Assessment - liquid floor and wall applier: Respiratory Tract Infection Hx - liquid floor and wall applier Hx Respiratory Tract Infection No 04/03/24 15:18 STOP Sleep Apnea STOP Sleep Apnea - liquid floor and wall applier: STOP Sleep Apnea - liquid floor and wall applier Hx Hypertension No 04/03/24 15:18 Hx Sleep Apnea Yes: STATES NO ISSUED SINCE 04/03/24 15:18 HAD DEVIATED SEPTUM REPAIRED CPAP No 04/03/24 15:18 BIPAP No 04/03/24 15:18 Do you snore loudly (louder than talking or can be heard Do you often feel tired/ fatigued/ sleepy during daytime? Has anyone observed you stop breathing during sleep? STOP Results Positive 04/03/24 15:18 QUESTION #5 FULL TEXT : Do you snore loudly (louder than talking or can be heard through closed doors)? Tobacco Use History Tobacco Use History - liquid floor and wall applier: Tobacco Use History - liquid floor and wall applier Tobacco Use Smoking Status Never smoker 04/03/24 15:18 Hx Tobacco Use No 04/03/24 15:18 Years Smoking Packs Smoked per Day Smoking Cessation Date was within the last 15 years Hx Smoking Cessation Date Hx Smoking Cessation Counseling Hematologic Medial History Hematologic Hx - liquid floor and wall applier: Hematologic Medical Hx - structural architect Hx of Blood Transfusion No 04/03/24 15:18 Hx of Transfusion in last 3 No 04/03/24 15:18 Months Date of Last Transfusion (if within last 3 months) Ever experience any problems No 04/03/24 15:18 with transfusion(s)? Specify any problems Hx of Preganancy in last 3 No 04/03/24 15:18 Months Nurse Filling Out Transfusion [id number] 04/03/24 15:18 & Questions: Date: 04/03/24 04/03/24 15:18 Time: 15:04/03/24 15:18 Patient unable to answer at this time (ie. confused, unrespo /Reproduction History /Reproductive History - liquid floor and wall applier: /Reproductive Hx- liquid floor and wall applier Hx Now Gestational Age (in weeks): EDC: Hx Hx Para Hx Section SAB No 02/28/23 16:02 PFSH Medical History Depression Gastric reflux Wears glasses Anxiety Cancer Osteoarthritis Arthritis Thyroid disease High cholesterol Restless legs Migraine headache History of hiatal hernia History of IBS Diverticulosis CPAP (continuous positive airway pressure) dependence Sleep apnea Leg cramps Non-smoker History of stress test Cardiology follow-up encounter Chest pain Obesity GERD (gastroesophageal reflux disease) Hyperlipidemia Home Medications ?Medication ?Instructions ?Recorded ?Last Taken ?Type levothyroxine 88 mcg tablet 88 mcg PO DAILY HYPOTHYROID 02/28/23 03/29/23 History rizatriptan 10 mg disintegrating 10 mg PO Q2H PRN migraine headache 02/28/23 Unknown History tablet ibuprofen 200 mg tablet (Advil) 200 mg PO Q6H PRN pain 02/19/24 Unknown History famotidine 40 mg tablet 40 mg PO QDAY #60 tabs 02/27/24 Unknown Rx omeprazole 40 mg capsule,delayed 40 mg PO QDAY #90 caps 02/27/24 Unknown Rx release aspirin 81 mg chewable tablet 81 mg PO DAILY 04/03/24 Unknown History celecoxib 200 mg capsule 200 mg PO BID PRN pain 04/03/24 Unknown History multivitamin with minerals-folic 2 tab PO DAILY 04/03/24 Unknown History acid 200 mcg chewable tablet (One-A-Day Vitacraves Immunity) psyllium husk 0.4 gram capsule 0.4 g PO DAILY 04/03/24 Unknown History (Daily Fiber) sennosides 8.6 mg-docusate sodium 2 tab PO BID PRN constipation 04/03/24 Unknown History 50 mg tablet (Stool Softener-Stimulant Laxative) Allergy/AdvReac Type Severity Reaction Status Date / Time dicyclomine (From Bentyl) Allergy Rash Verified 04/03/24 15:12 ezetimibe (From Zetia) Allergy Other Verified 04/03/24 15:12 influenza A (H5N1) virus Allergy Other Verified 04/03/24 15:12 vaccine mo metronidazole (From Flagyl) Allergy Rash Verified 04/03/24 15:12 moxifloxacin (From Avelox) Allergy Rash Verified 04/03/24 15:12 pravastatin Allergy Other Verified 04/03/24 15:12 simvastatin (From Zocor) Allergy Other Verified 04/03/24 15:12 atorvastatin (From Lipitor) AdvReac Unknown Other Verified 04/03/24 15:12 nickel (anuj) AdvReac Other Verified 04/03/24 15:12 Family History Father Heart disease Hyperlipidemia Mother Chronic mental illness Depression Anxiety Surgical History History of total left knee replacement History of colonoscopy History of total right knee replacement History of open reduction and internal fixation (ORIF) procedure History of lumpectomy of left breast History of section History of appendectomy History of hysterectomy History of arthroscopy of knee History of nasal septoplasty Social History household members: spouse and children number of children: 2 current occupational status: employed Smoking Status: Never smoker alcohol intake: never substance use type: does not use caffeine: Yes Review of Systems (Anesthesia) ROS Narrative System reviewed and no additional complaints, except as documented.
[2024-04-09 13:14] VITALS: BP 128/63; PULSE 81; RESP 16; TEMP 36.9; O2SAT 100; BMI 35.5
--- NOTE | 2024-04-09 14:00 | EGD_PTH ---
PATIENT: MORENO WOLFF LOC: EN U#:[id number] AGE/SX: 69/F ROOM: RE04/09/[address]: Dr. Reg Jean DO : 1955 BED: DIS: 04/09/2024 SPEC #: [id number] RECD: 04/10/24 07:40 STATUS: FLORY TAMICA #: [id number] JOHN: 04/09/24 14:[address]: Reg Jean DEPT: SURGICAL PATHOLOGY RECD BY: Geovanna Morales ENTERED: 04/10/24 12:02 SP TYPE: EGD BIOPSY OT DR: Dr. Teresita Ruiz MD Tissues: A - Duodenum, NOS B - Gastric mucous membrane C - Esophagus, NOS Procedures: Special Stain Group I Surgery Specimen Level IV Alcian Blue/PAS (control) HEADER OPERATION: EGD with biopsy PRE-OP DIAGNOSIS: Gastroesophageal reflux disease TISSUE SUBMITTED: A- Duodenum biopsy, B- Gastric antrum biopsy, C- Distal esophagus biopsy MICROSCOPIC DIAGNOSIS A. Duodenum, biopsy: Mild chronic duodenitis. Villous architecture is maintained. No significant increase in intraepithelial lymphocytes. Not suggestive of celiac disease. B. Gastric antrum, biopsy: Focal reactive gastropathy with minimal chronic inflammation. Small fragments of intestinal mucosa. See comment. C. Distal esophagus, biopsy: Glandular mucosa with focal chronic inflammation. Negative for intestinal metaplasia/Trammell's esophagus. Negative for dysplasia. Squamous mucosa is not present for evaluation. Negative for eosinophilic esophagitis. See comment. 04/11/2024 COMMENT B. The results of immunohistochemistry for Helicobacter pylori will be reported separately ([id number]). Small fragments of intestinal mucosa may represent small fragments of duodenal surface mucosa. Should they be gastric in nature, then intestinal metaplasia is present. Clinical correlation is necessary. C. Alcian blue/PAS stain with matched control is used in the evaluation of the specimen and shows no goblet cells and therefore no evidence of intestinal metaplasia/Trammell's esophagus. MICROSCOPIC DESCRIPTION Slides are reviewed. GROSS DESCRIPTION A. Received in fixative is one container labeled with the patient's name and designated Duodenum biopsy. The specimen consists of two irregular fragments of light jackson soft tissue that in aggregate measure 0.8 x 0.4 x 0.1 cm. The specimen is totally submitted in one cassette. B. Received in fixative is one container labeled with the patient's name and designated Gastric antrum biopsy. The specimen consists of multiple irregular fragments of light jackson soft tissue that in aggregate measure 1.0 x 0.5 x 0.1 cm. The specimen is totally submitted in one cassette. C. Received in fixative is one container labeled with the patient's name and designated Distal esophagus biopsy. The specimen consists of multiple irregular fragments of light jackson soft tissue that in aggregate measure 1.0 x 0.3 x 0.1 cm. The specimen is totally submitted in one cassette. [id number] 04/10/2024 TC:3 CPT:21313i1,45363
--- NOTE | 2024-04-09 14:00 | IMM_PTH ---
PATIENT: MORENO WOLFF LOC: EN U#:[id number] AGE/SX: 69/F ROOM: RE04/09/[address]: Dr. Reg Jean DO : 1955 BED: DIS: 04/09/2024 SPEC #: [id number] RECD: 04/10/24 10:56 STATUS: FLORY REQ #: [id number] JOHN: 04/09/24 14:[address]: Reg Jean DEPT: IMMUNOHISTOCHEMISTRY RECD BY: Arnulfo Schuler ENTERED: 04/10/24 10:57 SP TYPE: IMMUNO OTHR DR: Dr. Teresita Ruiz MD Tissues: B - Gastric mucous membrane Procedures: H Pylori (initial) PHYSICIAN & INSTITUTION [place] [id number] SPECIMEN INFORMATION: Tissue Source: B- Gastric antrum biopsy Clinical Info: Gastroesophageal reflux disease Specimen Number: [id number] CPT code: 81057 METHODOLOGY: Deparaffinized sections of prefer/formalin-fixed tissue or PAP/DQ stained slides are incubated with monoclonal/polyclonal antibodies/oligonucleotide probes. Localization is made via biotin free immunoperoxidase method. Appropriate controls are performed and reacted as expected. Results on target cell population are indicated in the following table: RESULTS: ANTIBODY / CLONE RESULT Block B H Pylori (polyclonal) Negative These tests were developed and their performance characteristics determined by [facility]. They may not have been cleared or approved by the U.S. Food and Drug Administration. The FDA has determined that such clearance or approval is not necessary. The above immunohistochemical/dualISH markers are ordered and reviewed by the Pathologist. INTERPRETATION: B. Gastric antrum, biopsy:
--- NOTE | 2024-04-09 14:00 | IMM_PTH ---
PATIENT: MORENO WOLFF LOC: EN U#:[id number] AGE/SX: 69/F ROOM: RE04/09/[address]: Dr. Reg Jean DO : 1955 BED: DIS: 04/09/2024 SPEC #: [id number] RECD: 04/10/24 10:56 STATUS: FLORY REQ #: [id number] JOHN: 04/09/24 14:[address]: Reg Jean DEPT: IMMUNOHISTOCHEMISTRY RECD BY: Arnulfo Schuler ENTERED: 04/10/24 10:57 SP TYPE: IMMUNO OTHR DR: Dr. Teresita Ruiz MD Tissues: B - Gastric mucous membrane Procedures: H Pylori (initial) PHYSICIAN & INSTITUTION [place] [id number] SPECIMEN INFORMATION: Tissue Source: B- Gastric antrum biopsy Clinical Info: Gastroesophageal reflux disease Specimen Number: [id number] CPT code: 90643 METHODOLOGY: Deparaffinized sections of prefer/formalin-fixed tissue or PAP/DQ stained slides are incubated with monoclonal/polyclonal antibodies/oligonucleotide probes. Localization is made via biotin free immunoperoxidase method. Appropriate controls are performed and reacted as expected. Results on target cell population are indicated in the following table: RESULTS: ANTIBODY / CLONE RESULT Block B H Pylori (polyclonal) Negative These tests were developed and their performance characteristics determined by [facility]. They may not have been cleared or approved by the U.S. Food and Drug Administration. The FDA has determined that such clearance or approval is not necessary. The above immunohistochemical/dualISH markers are ordered and reviewed by the Pathologist. INTERPRETATION: B. Gastric antrum, biopsy: Negative for Helicobacter pylori organisms. 04/11/2024
--- NOTE | 2024-04-09 14:06 | PCM.HP.BLA ---
History and Physical Date of Admission: 04/09/24 Chief Complaint: gas and heartburn Details: MORENO WOLFF, is a 69 F who presents to the office today for establishment with [facility]. Pt has PMHx of OA, s/p knee arthroplasty, IBS, and Hiatal hernia. She has been having severe gas pain radiating from her epigastrium to her esophagus and eructation for a few months now. Her symptoms seemed to have started after she cut bread out of her diet and started eating more vegetables. She has had heartburn in the past and has been on PPI therapy for years. Her heartburn is worse now. Her last EGD and colonoscopy was in 2019 with no abnormalities that she remembers. Her PCP added famotidine 20 mg in the evening which helped somewhat but did not completely resolve it. She has had some nausea on occasion throughout this time frame but no vomiting. She has some constipation that is well managed with fiber supplementation when she takes it consistently. Her constipation is not worrisome to her at this point. Last colonoscopy was in 2019 with findings of diverticulosis but no polyps. She denies abdominal pain, diarrhea or blood in her stool. ROS Const Constitutional: Positive for fatigue; No fever(s) or weight change ENT ENT: Positive for difficulty swallowing Gastro GI: Positive for abdominal pain, bloating, difficulty swallowing and excessive flatus; No belching, change in bowel habits, change in stool character, coffee ground emesis, constipation, cramping, diarrhea, heartburn, feeling full early, incontinent of stools, Vomiting blood/hematemesis, Blood in stool, loose stools, Black,tarry stools, nausea/dyspepsia, pain with swallowing, vomiting or other Musc Musculoskeletal: Positive for joint pain, back pain and Arthritis Skin Skin: No yellowing of the eye or itchy eyes Psych Psychiatric: Positive for anxiety and No depression Endo Endocrine: Positive for fatigue; No weight change Aller/Imm Allergy/Immunologic: No itchy eyes Erasto/Lymp Hematologic/Lymphatic: No easy bleeding or easy bruising Assessment and Plan Assessment and Plan (1) Gastroesophageal reflux disease: Plan: This is a new pt here today for establishment with [facility]. She has been having worsening reflux symptoms and gas for a few months now. Her last EGD was in 2019 with findings of a hiatal hernia. She will need to undergo another EGD to rule out GERD, gastritis, esophagitis or ulcer. She recently had blood work and gallbladder work up which was all wnl. We will determine treatment plan pending the results. In the meantime I increased her PPI and famotidine to 40 mg daily. SHe also suffers from constipation but has good results with fiber supplementation when she takes it consistently. I recommended she continue the fiber. SHe has no alarm signs that would indicate need for a colonoscopy and her last one in 2019 was without pertinent abnormality. -EGD -Increased omeprazole and famotidine -Continue daily fiber supplement -f/u in three months (2) IBS (irritable bowel syndrome): Status: Acute (3) Hiatal hernia: Status: Acute Medications: New omeprazole 40 mg PO QDAY 90 caps 3RF famotidine 40 mg PO QDAY 60 tabs 3RF Discontinued famotidine Discontinued Reason: Duplicate Order 20 mg PO QHS omeprazole Discontinued Reason: Duplicate Order 20 mg PO DAILY GERD
[2024-04-09 16:00] VITALS: BP 128/63; BP 138/73; PULSE 102; RESP 16; TEMP 37.1; O2SAT 96
--- NOTE | 2024-04-09 16:03 | OP.EGD_ITS ---
Patient Name: Sravani Broussard Procedure Date: 04/09/2024 3:33 PM Date of : 1955 Age: 69 Procedure: Upper GI endoscopy Indications: Heartburn, Suspected esophageal reflux Providers: DO Estrella Mishra MD: Teresita Ruiz Medicines: Monitored Anesthesia Care Patient Profile: This is a 69 year old female. Refer to note in patient chart for documentation of history and physical. Patient has symptoms of chronic heartburn. Complications: No immediate complications. Procedure: Pre-Anesthesia Assessment: - Prior to the procedure, a History and Physical was performed, and patient medications and allergies were reviewed. The patient is competent. The risks and benefits of the procedure and the sedation options and risks were discussed with the patient. All questions were answered and informed consent was obtained. Patient identification and proposed procedure were verified by the physician in the pre-procedure area. Mental Status Examination: alert and oriented. Airway Examination: normal oropharyngeal airway and neck mobility. Respiratory Examination: clear to auscultation. CV Examination: normal. Prophylactic Antibiotics: The patient does not require prophylactic antibiotics. Prior Anticoagulants: The patient has taken no anticoagulant or antiplatelet agents except for NSAID medication. ASA Grade Assessment: II - A patient with mild systemic disease. After reviewing the risks and benefits, the patient was deemed in satisfactory condition to undergo the procedure. The anesthesia plan was to use monitored anesthesia care (MAC). Immediately prior to administration of medications, the patient was re-assessed for adequacy to receive sedatives. The heart rate, respiratory rate, oxygen saturations, blood pressure, adequacy of pulmonary ventilation, and response to care were monitored throughout the procedure. The physical status of the patient was re-assessed after the procedure. After obtaining informed consent, the endoscope was passed under direct vision. Throughout the procedure, the patient's blood pressure, pulse, and oxygen saturations were monitored continuously. The gastroscope was introduced through the mouth, and advanced to the second part of duodenum. The upper GI endoscopy was accomplished without difficulty. The patient tolerated the procedure well. Scope In: 3:49:55 PM Scope Out: 3:55:32 PM Total Procedure Duration Time 0 hours 5 minutes 37 seconds Findings: There were esophageal mucosal changes consistent with short-segment Trammell's esophagus present in the lower third of the esophagus. The maximum longitudinal extent of these mucosal changes was 3 cm in length. Mucosa was biopsied with a cold forceps for histology in a targeted manner at intervals of 1 cm in the lower third of the esophagus. One specimen bottle was sent to pathology. Verification of patient identification for the specimen was done. Estimated blood loss was minimal. A medium-sized hiatal hernia was present. Patchy mildly congested mucosa was found in the gastric antrum. Biopsies were taken with a cold forceps for histology. Verification of patient identification for the specimen was done. Estimated blood loss was minimal. Biopsies were taken with a cold forceps for Helicobacter pylori testing. Verification of patient identification for the specimen was done. Estimated blood loss was minimal. Patchy mildly erythematous mucosa without active bleeding and with no stigmata of bleeding was found in the first portion of the duodenum. Impression: - Esophageal mucosal changes consistent with short-segment Trammell's esophagus. Biopsied. - Medium-sized hiatal hernia. - Congestive gastropathy. Biopsied. - Erythematous duodenopathy. Recommendation: - Discharge patient to home. - Resume previous diet today. - Continue present medications. Procedure Code(s): --- Professional --- 64202, Esophagogastroduodenoscopy, flexible, transoral; with biopsy, single or multiple CPT copyright 2021 [employer]. All rights reserved. The codes documented in this report are preliminary and upon investigator vice review may be revised to meet current compliance requirements. Reg Jean DO 04/09/2024 4:03:38 PM This report has been signed electronically. Number of Addenda: 0 Note Initiated On: 04/09/2024 3:33 PM
--- NOTE | 2024-04-09 16:04 | OP.CCLET_ITS ---
04/09/2024 Teresita Ruiz Re : Upper GI endoscopy procedure for Sravani Fernandor Sara This procedure was performed on Tuesday, April 09, 2024. My impressions and recommendations are as follows: Impressions : - Esophageal mucosal changes consistent with short-segment Trammell's esophagus. Biopsied. - Medium-sized hiatal hernia. - Congestive gastropathy. Biopsied. - Erythematous duodenopathy. Recommendations : - Discharge patient to home. - Resume previous diet today. - Continue present medications. My findings are described in the full procedure note, which is enclosed. If I can be of further assistance, please feel free to contact me at . Sincerely, Reg Jean, 04/09/2024 4:03:38 PM This report has been signed electronically.
[2024-04-09 16:05] VITALS: BP 116/82; BP 128/63; PULSE 96; RESP 16; O2SAT 96
--- NOTE | 2024-04-09 16:06 | PCM.POST.ANE ---
Anesthesia: Postop Eval I Current Vital Signs Temperature: 98.7 F Pulse Rate: 98 Blood Pressure: 138/73 Respiratory Rate: 16 Pulse Ox: 97 Oxygen Delivery Method: Room Air Assessment Airway patent: Yes Spontaneous unlabored respirations: Yes Mental status: Awake and Calm nausea: No Vomiting: No Anesthesia Complication: No Fluid Hydration Crystalloid volume administer (ml): 30 Total IV fluid infused: 30 Progress Note Anesthesia document: Postop Eval 1 completed: Yes
[2024-04-09 16:07] VITALS: BP 138/73; PULSE 98; RESP 16; TEMP 37.1; O2SAT 97
[2024-04-09 16:10] VITALS: BP 128/63; BP 146/94; PULSE 96; RESP 16; TEMP 36.9; O2SAT 96
[2024-04-09 16:35] VITALS: BP 128/63
--- NOTE | 2024-04-09 21:05 | PCM.POSTANE2 ---
Anesthesia Postop Eval I Sum Postop Eval Completion status Anesthesia document: Postop Eval 1 completed: Yes Anesthesia Postop Eval I Summary Anesthesia Postop Eval I Summary: Anesthesia Postop Eval I: Assessment Summary Airway patent Yes 04/09/24 16:07 [email or web address] Spontaneous unlabored Yes 04/09/24 16:07 [email or web address] respirations Mental status Awake,Calm 04/09/24 16:07 [email or web address] nausea No 04/09/24 16:07 [email or web address] Vomiting No 04/09/24 16:07 [email or web address] Anesthesia Postop Eval I: Fluid Summary Crystalloid volume administer 30 04/09/24 16:07 [email or web address] (ml) Colloids volume administered ( ml) Blood Product volume administered (ml) Total IV fluid infused 30 04/09/24 16:07 [email or web address] Anesthesia Postop Eval I: Summary Notes Anesthesia Complication No 04/09/24 16:07 [email or web address] Anesthesia Complication Comment: Post-operative progress note Anesthesia: Postop Eval II Evaluation Mental status: Awake and Calm Pain Level: 0 nausea: No Vomiting: No Complications Anesthesia Complication: No
== END 2024-04-09 16:35 | disposition home or self-care (01) ==
LOC: EN 12:45 → AC 12:50
PROVIDERS: PCP Family Medicine; Referring Provider Family Medicine; Visit Provider Internal Medicine Gastroenterology
PROC: 0DJ08ZZ Inspection of Upper Intestinal Tract, Via Natural or Artificial Opening Endoscopic (ICD-10-PCS; CPT 43235; principal; 2024-04-09 13:55)
DX: K44.9 Diaphragmatic hernia without obstruction or gangrene (principal); K21.9 Gastro-esophageal reflux disease without esophagitis; K29.80 Duodenitis without bleeding; G43.909 Migraine, unspecified, not intractable, without status migrainosus; K63.89 Other specified diseases of intestine; Z79.82 Long term (current) use of aspirin; Z79.899 Other long term (current) drug therapy
CPT/HCPCS: 43239; 88305; 88312; 88342; A4216; J2405